=== PATIENT | female | born 1990 | race American Indian/Alaskan Native ===

== ENCOUNTER 2018-07-06 18:24 | Inpatient (IN) | payer OTHER ==
[2018-07-06] MEDS ORDERED: AMPICILLIN/NS 2 GM/100 ML 2 GM/100 ML BAG IV NR (19:41)
[2018-07-06] MEDS ORDERED: LACTATED RINGERS 1,000 ML ONE (20:14)
[2018-07-06] MEDS ORDERED: SUBLIMAZE IV PRN (21:43)
[2018-07-06] MEDS ORDERED: STADOL IV PRN (21:43)
[2018-07-06] MEDS ORDERED: BRETHINE SUB-Q PRN (21:43)
[2018-07-06] MEDS ORDERED: XYLOCAINE 2% INFILTRATI ONE (21:43)
[2018-07-06] MEDS ORDERED: ZOFRAN IV PRN (21:43)
[2018-07-06] MEDS ORDERED: NARCAN 0.4 MG/1 ML IV PRN (21:43)
[2018-07-06] MEDS ORDERED: BRETHINE IVP PRN (21:43)
[2018-07-06] MEDS ORDERED: MINERAL OIL PO PRN (21:43)
[2018-07-06] MEDS ORDERED: AMPICILLIN/NS 2 GM/100 ML 2 GM/100 ML BAG IV ONE (21:43)
[2018-07-06 21:48] LABS: Basophils # (Auto) 0.1 K/mm3 (0.0-0.1); Basophils % (Auto) 0.6 % (0.0-1.8); Eosinophils % (Auto) 0.4 % (0.0-4.3); Hematocrit 37.6 % (30.3-42.9); Hemoglobin 12.6 gm/dl (10.1-14.3); Lymphocytes # (Auto) 2.8 K/mm3 (1.2-5.4); Lymphocytes % (Auto) 29.3 % (13.4-35.0); Mean Corpuscular HGB Conc 34 % (30-34); Mean Corpuscular Volume 93 fl (79-97); Monocytes # (Auto) 0.6 K/mm3 (0.0-0.8); Platelet Count 213 K/mm3 (140-440); Red Blood Count 4.04 M/mm3 (3.65-5.03); Red Cell Distribution Width 14.3 % (13.2-15.2)
[2018-07-06] MEDS ORDERED: PITOCin/NS 30 UNIT/500ML 30 UNITS/500 ML BAG IV SCH (22:00)
[2018-07-06] MEDS ORDERED: CELESTONE SOLUSPAN IM SCH (22:00)
[2018-07-06] MEDS: LACTATED RINGERS 1,000 ML IV SCH (22:04)
[2018-07-06 22:15] LABS: Hepatitis C Virus Antibody Non-Reactive (NonReactive)
--- NOTE | 2018-07-06 22:24 | History and Physical Report ---
History of Present Illness Date of examination: 07/06/18 Date of admission: 07/06/18 19:45 Chief complaint: water broke History of present illness: Pt is a 28 year old -[place]ong[place] NANCY 08/05/18 at 35w5d presents with rupture of membranes at 1630pm. She reports rare contractions but denies vaginal bleeding. She has care at [facility] uncomplicated per pt but her records are currently unavailable for review. She is GBS unknown. Past History Past Medical History: no pertinent history Past Surgical History: no surgical history Family/Genetic History: heart disease Social history: no significant social history - Obstetrical History Expected Date of Delivery: 08/05/18 Actual Gestation: 35 Week(s) 5 Day(s) : 2 Para: 1 Hx # Term Pregnancies: 1 Number of Pregnancies: 0 Spontaneous Abortions: 0 Induced : 0 Number of Living Children: 1 Medications and Allergies Allergies Allergy/AdvReac Type Severity Reaction Status Date / Time No Known Allergies Allergy Verified 07/29/15 07:07 Home Medications Medication Instructions Recorded Confirmed Last Taken Type RX: No Known Home Medications [No 07/29/15 07/29/15 Unknown History Reported Home Medications] Active Meds: Active Medications Betamethasone Acet/Betameth SodPhos (Celestone Soluspan) 12 mg IM Q24H EMMA Stop: 07/07/18 22:01 Last Admin: 07/06/18 21:56 Dose: 12 mg Documented by: Butorphanol Tartrate (Stadol) 2 mg IV Q2H PRN PRN Reason: Pain , Severe (7-10) Ephedrine Sulfate (Ephedrine Sulfate) 10 mg IV Q2M PRN PRN Reason: Hypotension Fentanyl (Sublimaze) 100 mcg IV Q2H PRN PRN Reason: Labor Pain Oxytocin/Sodium Chloride (Pitocin/Ns 20 Unit/1000ml Drip) 20 units in 1,000 mls @ 125 mls/hr IV DIRECT EMMA Oxytocin/Sodium Chloride (Pitocin/Ns 30 Unit/500ml) 30 units in 500 mls @ 2 mls/hr IV TITR EMMA; Protocol Lactated Ringer's (Lactated Ringers) 1,000 mls @ 125 mls/hr IV DIRECT EMMA Last Admin: 07/06/18 22:04 Dose: 125 mls/hr Documented by: Ampicillin Sodium (Ampicillin/Ns 1 Gm/50 Ml) 1 gm in 50 mls @ 100 mls/hr IV Q4HR [facility]; Protocol Ampicillin Sodium (Polycillin/Ns 2 Gm/100 Ml) 2 gm in 100 mls @ 100 mls/hr IV ONCE ONE; Protocol Stop: 07/06/18 22:42 Last Admin: 07/06/18 20:45 Dose: 100 mls/hr Documented by: Mineral Oil (Mineral Oil) 30 ml PO QHS PRN PRN Reason: Constipation Naloxone HCl (Narcan 0.4 Mg/1 Ml) 0.1 mg IV Q2MIN PRN PRN Reason: Res Rate </= 8 or 02 SAT < 92% Ondansetron HCl (Zofran) 4 mg IV Q8H PRN PRN Reason: Nausea And Vomiting Terbutaline Sulfate (Brethine) 0.25 mg SUB-Q ONCE PRN PRN Reason: Hyperstimulation/Hypertonicity Terbutaline Sulfate (Brethine) 0.25 mg IVP ONCE PRN PRN Reason: Hyperstimulation/Hypertonicity Review of Systems All systems: negative - Vital Signs Vital signs: Vital Signs Pulse BP 86 110/73 07/06/18 19:07 07/06/18 19:07 Temp Pulse Resp BP Pulse Ox 81 114/79 07/06/18 22:06 07/06/18 22:06 - Physical Exam Breasts: Positive: deferred Cardiovascular: Regular rate Lungs: Positive: Clear to auscultation Abdomen: Positive: soft (gravid ) Uterus: Positive: enlarged (gravid ) Extremities: Positive: normal - Obstetrical FHR: auscultation normal Cervical Dilatation: 3 (per RN ) Results Result Diagrams: 07/06/18 21:36 All other labs normal. Assessment and Plan A: IUP at 35w5d; confirmed cephalic presentation PPROM GBS unknown P: Admit to labor and delivery Request records Admission labs GBS prophylaxis Betamethasone Proceed with delivery
--- NOTE | 2018-07-06 23:19 | Ultrasound Report ---
PROCEDURE: US OB FOLLOW UP TECHNIQUE: Real-time limited sonographic examination was performed for evaluation of each fetus with image documentation (1 or more fetuses). HISTORY: For presentation and EFW COMPARISONS: None . FINDINGS: FETUS IUP: Single living intrauterine . Position: Cephalic . Placental position: Anterior and grade 1, without previa . Amniotic fluid volume: Amniotic fluid index measures 4.1 cm Heart rate and rhythm: 145 BPM, Regular . anatomic survey: Not performed . MEASUREMENTS BPD: 8.5 cm, 34 weeks 3 days . HC: 30.4 cm, 33 weeks 6 days . AC: 29.7 cm, 33 weeks 5 days . FL: 6.7 cm, 34 weeks 3 days . Mean Gestational Age (composite criteria): 34 weeks 1 day . Ratio biometry: Normal . Estimated Weight: 2315 grams . Estimated Due Date: 08/16/2018 . IMPRESSION: 1. Single living intrauterine gestation at approximately 34 weeks 1 day . 2. EDC by US 08/16/2018 . 3. Oligohydramnios. Correlate for possible rupture of membranes This document is electronically signed by Anca Segura MD., Jul 06 2018 11:17:14 PM ET
[2018-07-07] MEDS: AMPICILLIN/NS 1 GM/50 ML 1 GM/50 ML BAG IV SCH ×2 (01:30→05:21)
[2018-07-07] MEDS: LACTATED RINGERS 1,000 ML IV SCH (05:22)
[2018-07-07] MEDS ORDERED: SUBLIMAZE IV ONE (06:29)
--- NOTE | 2018-07-07 08:00 | Progress Note ---
Assessment and Plan A/P IUP 35 weeks PPROM clear NICCU notified active labor s/p bmz x1 expect vaginal delivery Subjective - Subjective Date of service: 07/07/18 Principal diagnosis: pprom at 35 weeks Patient reports: loss of fluid, movement normal, contractions, no new complaints, no vaginal bleeding Objective - Vital Signs Vital Signs: Vital Signs - 12hr 07/06/18 07/06/18 07/06/18 20:29 21:50 22:06 Temperature Pulse Rate 75 86 81 Respiratory Rate Blood Pressure 110/64 122/78 114/79 07/06/18 07/07/18 07/07/18 22:43 01:34 02:04 Temperature 97.6 F Pulse Rate 78 72 Respiratory 20 Rate Blood Pressure 95/52 119/77 07/07/18 07/07/18 07/07/18 02:34 03:04 03:34 Temperature Pulse Rate 74 74 67 Respiratory Rate Blood Pressure 96/65 115/70 111/74 07/07/18 07/07/18 07/07/18 04:05 04:35 05:04 Temperature Pulse Rate 71 64 76 Respiratory Rate Blood Pressure 109/72 108/71 94/64 07/07/18 07/07/18 07/07/18 05:34 06:04 06:34 Temperature Pulse Rate 78 80 81 Respiratory Rate Blood Pressure 101/72 109/75 119/78 07/07/18 07/07/18 07:04 07:31 Temperature Pulse Rate 75 74 Respiratory Rate Blood Pressure 93/62 103/67 - Exam Breasts: normal Cardiovascular: Regular rate, Normal S1 Lungs: Clear to auscultation, Normal air movement Abdomen: Present: normal appearance, soft, normal bowel sounds. Absent: distention, tenderness, guarding Uterus: Present: normal, firm FHR: category 1 Cervical Dilatation: 7 Cervical Effacement Percentage: 90 station: -2 Uterine Contraction Pattern: Regular Uterine Tone Measurement Phase: Contraction Uterine Contraction Intensity: Moderate Extremities: normal Deep Tendon Reflex Grade: Normal +2 - Labs Labs: Laboratory Results - last 24 hr 07/06/18 07/06/18 07/06/18 21:36 21:36 21:36 WBC 9.7 RBC 4.04 Hgb 12.6 Hct 37.6 MCV 93 MCH 31 MCHC 34 RDW 14.3 Plt Count 213 Lymph % (Auto) 29.3 [place] % (Auto) 6.0 Eos % (Auto) 0.4 Baso % (Auto) 0.6 Lymph # 2.8 [place] # 0.6 Eos # 0.0 Baso # 0.1 Seg Neutrophils % 63.7 Seg Neutrophils # 6.2 Hep Bs Antigen Non-reactive Hepatitis C Antibody Non-reactive HIV 1&2 Antibody Rapid HIV P24 Antigen Rubella IgG Antibody Immune Blood Type Antibody Screen 07/06/18 07/06/18 21:36 21:36 WBC RBC Hgb Hct MCV MCH MCHC RDW Plt Count Lymph % (Auto) [place] % (Auto) Eos % (Auto) Baso % (Auto) Lymph # [place] # Eos # Baso # Seg Neutrophils % Seg Neutrophils # Hep Bs Antigen Hepatitis C Antibody HIV 1&2 Antibody Rapid Non react HIV P24 Antigen Non react Rubella IgG Antibody Blood Type O POSITIVE Antibody Screen Negative
[2018-07-07] MEDS: PITOCin/NS 20 UNIT/1000ML DRIP 20 UNITS/1,000 ML BAG IV SCH ×2 (09:36→12:31)
--- NOTE | 2018-07-07 09:48 | Procedure Note ---
OB Delivery Note - Vaginal Delivery position: OA Intrapartum events: none, PROM->1hr before delivery Delivery induction: none Delivery augmentation: pitocin Delivery monitor: external FHT, external uterine Route of delivery: Delivery placenta: spontaneous Delivery cord: 3 umbilical vessels Episiotomy: none Delivery laceration: 1st degree Anesthesia: none Delivery comments: of viable male infant at 35 weeks EGA. Delivery was unattended by provider due to short second stage. EBL 350 mL, Pitocin infused . Stream of bleeding after the placenta was resolved with manual removal of clots in the lower uterine segment. Apgars 8/9, infant was transferred to NICU for observation due to resuscitation. Small 1st degree laceration not repaired. Mother recovering well.
[2018-07-07] MEDS ORDERED: ZOFRAN IV PRN (09:49)
[2018-07-07] MEDS ORDERED: TUCKS PAD TP PRN (09:49)
[2018-07-07] MEDS ORDERED: DULCOLAX PR PRN (09:49)
[2018-07-07] MEDS ORDERED: LANSINOH TP PRN (09:49)
[2018-07-07] MEDS ORDERED: MILK OF MAGNESIA PO PRN (09:49)
[2018-07-07] MEDS ORDERED: TYLENOL PO PRN (09:49)
[2018-07-07] MEDS ORDERED: PHENERGAN PO PRN (09:49)
[2018-07-07] MEDS ORDERED: BENADRYL PO PRN (09:49)
[2018-07-07] MEDS ORDERED: SODIUM CHLORIDE FLUSH SYRINGE 10 ML IV NR (10:00)
[2018-07-07] MEDS: IBUPROFEN PO SCH ×2 (12:40→23:51)
[2018-07-07 20:42] LABS: Hematocrit 36.5 % (30.3-42.9); Hemoglobin 12.3 gm/dl (10.1-14.3)
[2018-07-07 22:10] LABS: Amphetamine Screen,Urine PRESUMPTIVE NEGATIVE; Benzodiazepines Screen,Urine PRESUMPTIVE NEGATIVE; Cannabinoid Screen,Urine PRESUMPTIVE NEGATIVE; Cocaine Screen,Urine PRESUMPTIVE NEGATIVE; Methadone Screen,Urine PRESUMPTIVE NEGATIVE; Opiate Screen,Urine PRESUMPTIVE NEGATIVE
[2018-07-08] MEDS: IBUPROFEN PO SCH ×4 (05:12→23:24)
[2018-07-08] MEDS ORDERED: BOOSTRIX IM ONE (06:00)
--- NOTE | 2018-07-08 10:52 | Progress Note ---
Assessment and Plan A/P PPD1 delivery routine care d/c home tomorrow Subjective - Subjective Date of service: 07/08/18 Principal diagnosis: pprom at 35 weeks Patient reports: appetite normal, voiding normally, pain well controlled, flatus, ambulating normally [place]: doing well Objective - Vital Signs Latest vital signs: Vital Signs Temp Pulse Resp BP BP Pulse Ox 07/08/18 08:05 98.4 F 64 16 114/66 98 07/08/18 00:40 98.3 F 68 20 109/68 99 07/07/18 20:20 98.4 F 79 18 112/80 99 07/07/18 16:31 98.9 F 63 18 119/79 99 07/07/18 12:40 20 07/07/18 11:24 97.4 F L 72 18 116/76 99 Intake and Output 07/07/18 07/08/18 07/08/18 23:59 07:59 15:59 Intake Total 840 240 Output Total 900 Balance -60 240 Intake: Intake, Free Water 840 240 Output: Urine 900 Indwelling Catheter 400 Void 500 Other: Total, Output Amount 400 # Voids Indwelling Catheter 2 - Exam Breasts: Present: normal Cardiovascular: Present: Regular rate, Normal S1 Lungs: Present: Clear to auscultation, Normal air movement Abdomen: Present: normal appearance, soft, normal bowel sounds. Absent: distention, tenderness, guarding Uterus: Present: normal, firm, fundal height below umbilicus. Absent: bogginess, tenderness Extremities: Present: normal Deep Tendon Reflex Grade: Normal +2
--- NOTE | 2018-07-08 10:52 | Discharge Summary ---
Providers - Providers Date of Admission: 07/06/18 19:45 Date of discharge: 07/09/18 Attending physician: MERY GEE Primary care physician: MERY GEE Hospitalization Reason for admission: active labor, labor Delivery: Episiotomy: none Laceration: none Incision: normal Other procedures: none Discharge diagnosis: delivery [place] baby: male Condition at discharge: Good Disposition: DC-01 TO HOME OR SELFCARE Plan - Provider Discharge Summary Activity: routine, no sex for 6 weeks, no strenuous exercise Diet: routine Instructions: routine Additional instructions: [] Smoking cessation referral if applicable(refer to patient education folder for contact #) [] Refer to [facility] Booklet Call your doctor immediately for: * Fever > 100.5 * Heavy vaginal bleeding ( >1 pad per hour) * Severe persistent headache * Shortness of breath * Reddened, hot, painful area to leg or breast * Drainage or odor from incision. * Keep incision clean and dry at all times and follow doctor's instructions regarding bathing/showering - Follow up plan Follow up: MERY GEE MD [Primary Care Provider] - 6 Weeks
[2018-07-09] MEDS: IBUPROFEN PO SCH (05:19)
[2018-07-09 12:19] VITALS: BP 125/87
== END 2018-07-09 13:05 | disposition home or self-care (01) | DRG 775 ==
LOC: TRG 18:24 → LD 19:45 → OB 07-07 12:04
PROVIDERS: ADMIT Obstetrics & Gynecology; ATTEND Obstetrics & Gynecology
PROC: 10E0XZZ Delivery of Products of Conception, External Approach (ICD-10-PCS; principal; 2018-07-07)
DX: O60.14X0 Preterm labor third trimester with preterm delivery third trimester, not applicable or unspecified (principal); O42.913 Preterm premature rupture of membranes, unspecified as to length of time between rupture and onset of labor, third trimester; O70.0 First degree perineal laceration during delivery; Z37.0 Single live birth; Z3A.35 35 weeks gestation of pregnancy
CPT/HCPCS: 36415; 76816; 80307; 85014; 85018; 85025; 86592; 86706; 86762; 86803; 86850; 86900; 86901; 87806; 90715; G0378; J0290; J0702; J2590; J3010; J7120

== ENCOUNTER 2019-11-21 07:00 | Day surgery (SDC) | payer MEDICAID ==
[~2019-11-21 07:00] MED LIST: BUPIVACAINE/PF (0.5%) 5 MG/1 ML 30 ML VIAL INFILTRATI ONE
--- NOTE | 2019-11-21 07:34 | Short Stay Summary ---
Short Stay Documentation Date of service: 11/21/19 Narrative H&P: 29-year-old -1-0-2 with undesired fertility. The patient has elected to undergo permanent sterilization. She is aware of other contraceptive options. - History Principal diagnosis: Unwanted fertility Past Medical History: No medical history Past Surgical History: No surgical history Social history: single - Allergies and Medications Current Medications: Allergies No Known Allergies Allergy (Verified 11/14/19 11:53) Home Medications Medication Instructions Recorded Confirmed Last Taken Type No Known Home Medications [No 11/14/19 11/14/19 Unknown History Reported Home Medications] - Physical exam General appearance: no acute distress Integumentary: no rash HEENT: Atraumatic Lungs: Clear to auscultation Breasts: deferred Heart: Regular rate Gastrointestinal: normal Female Genitourinary: deferred Rectal Exam: deferred Extremities: no ischemia Neurological: Normal gait - Brief post op/procedure progress note Date of procedure: 11/21/19 Pre-op diagnosis: Unwanted fertility Post-op diagnosis: same Procedure: Laparoscopy and bilateral tubal ligation with Filshie clips Anesthesia: MATYA Surgeon: CAMPBELL ARMSTRONG Estimated blood loss: minimal Pathology: none Condition: stable - Hospital course Hospital course: The patient was admitted the day of surgery and underwent a laparoscopic bilateral tubal ligation. Please see operative note for details of surgery. - Disposition Condition at discharge: Good Disposition: DC-01 TO HOME OR SELFCARE - Discharge Diagnoses (1) Unwanted fertility Status: Acute Short Stay Discharge Plan Activity: other (Pelvic rest for 1 week) Diet: regular Additional Instructions: Follow-up is not required Follow-up as needed Prescriptions: Ibuprofen [Motrin] 800 mg PO Q8HR PRN #30 tablet PRN Reason: Pain , Severe (7-10) HYDROcodone/APAP 5-325 [[place] 5/325] 1 each PO Q6HR PRN #15 tablet PRN Reason: Pain
[2019-11-21] MEDS ORDERED: LACTATED RINGERS 1,000 ML ONE (07:56)
[2019-11-21] MEDS ORDERED: MIDAZOLAM 2 MG/2 ML INJ IV NR (08:00)
[2019-11-21] MEDS ORDERED: LACTATED RINGERS 1,000 ML IV SCH (08:00)
[2019-11-21] MEDS ORDERED: ONDANSETRON 4 MG/2 ML INJ IV PRN (08:00)
[2019-11-21] MEDS ORDERED: HYDROmorphone 1 MG/1 ML INJ IV PRN ×2 (08:00)
--- NOTE | 2019-11-21 08:01 | Anesthesia Consultation ---
Anesthesia Consult and Med Hx Date of service: 11/21/19 - Airway Anesthetic Teeth Evaluation: Good ROM Head & Neck: Adequate Mental/Hyoid Distance: Adequate Mallampati Class: Class II Intubation Access Assessment: Good - Pre-Operative Health Status ASA Pre-Surgery Classification: ASA1 Proposed Anesthetic Plan: General - Pulmonary Hx Asthma: No COPD: No Hx Pneumonia: No - Cardiovascular System Hx Hypertension: No - Central Nervous System Hx Seizures: No Hx Psychiatric Problems: No - Endocrine Hx Renal Disease: No Hx End Stage Renal Disease: No Hx Hypothyroidism: No Hx Hyperthyroidism: No - Hematic Hx Anemia: No Hx Sickle Cell Disease: No - Other Systems Hx Alcohol Use: No Hx Cancer: No
--- NOTE | 2019-11-21 08:01 | Anesthesia Day of Surgery ---
Anesthesia Day of Surgery - Day of Surgery Patient Examined: Yes Patient H&P Reviewed: Yes Patient is NPO: Yes
[2019-11-21] MEDS ORDERED: propofoL 200 MG/20 ML VIAL IV ONE (08:32)
[2019-11-21] MEDS ORDERED: ROCURONIUM 50 MG/5 ML INJ IV ONE (08:32)
[2019-11-21] MEDS ORDERED: HYDROmorphone 1 MG/1 ML INJ ONE (08:32)
[2019-11-21] MEDS ORDERED: LIDOCAINE MPF (2%) 20 MG/1 ML VIAL 5 ML ONE (08:32)
[2019-11-21] MEDS ORDERED: KETOROLAC 30 MG/1 ML INJ ONE (09:15)
[2019-11-21] MEDS ORDERED: NEOSTIGMINE 10MG/10 ML INJ MDV ONE ×2 (09:15)
[2019-11-21] MEDS ORDERED: GLYCOPYRROLATE 0.4 MG/2 ML INJ ONE (09:15)
[2019-11-21] MEDS ORDERED: BUPIVACAINE/PF (0.5%) 5 MG/1 ML 30 ML VIAL INFILTRATI ONE (09:15)
[2019-11-21] MEDS ORDERED: ONDANSETRON 4 MG/2 ML INJ ONE (09:16)
--- NOTE | 2019-11-21 09:20 | Operative Report ---
Operative Report Operative Report: Date of surgery: November 21, 2019 Preoperative diagnosis: Unwanted fertility Postoperative diagnosis: Same as above Procedure: Laparoscopic bilateral tubal ligation with Filshie clips Surgeon: Lea Frias M.D. Anesthesia: General endotracheal anesthesia Estimated blood loss: Minimal Findings: Normal uterus tubes and ovaries Indication: 29-year-old -1-0-2 with undesired fertility. Procedure: The patient was taken to the operating room and given general endotracheal anesthesia without complication. The patient is prepped and draped in a normal sterile fashion. A bivalve speculum was placed in the patient's vagina and a single-tooth tenaculum was placed on the anterior lip of the cervix .A uterine acorn manipulator was placed, and the bivalve speculum was then removed. Attention was then turned to the patient's abdomen where a 5 mm infraumbilical skin incision was then made. A Veress needle was placed and peritoneal entry was verified water-filled syringe. Insufflation of the peritoneal cavity was performed with CO2 gas. A 5 mm trocar was placed and the laparoscope was then inserted. The patient was then placed in Trendelenburg. A 7 mm suprapubic skin incision was then made. Under direct visualization a 7 mm trocar was then placed. An additional 5 mm left lateral trocar was also placed. General survey of the patient's abdomen revealed normal uterus tubes and ovaries. The fallopian tube was then followed out to the fimbriated end. A Filshie clip was applied to the ampullary portion of the tube this was performed on the contralateral side as well. The trocars were then removed. The pneumoperitoneum was then released. The 5 mm trocar laparoscope was then removed. The skin incisions were then closed with 4-0 Monocryl. The incisions were injected with quarter percent Marcaine. Dressings were applied to the incision. The vaginal instruments were then removed atraumatically. Then successfully extubated and taken to the recovery room. All sponge laps and needle counts were correct x2.
[2019-11-21 10:02] VITALS: BP 146/98
[2019-11-21] MEDS ORDERED: HYDROcodone/ACETAMINOPHEN 5-325 MG TAB PO PRN (10:02)
--- NOTE | 2019-11-21 11:01 | Post Anesthesia Evaluation ---
- Post Anesthesia Evaluation Patient Participated: Yes Airway Patent: Yes Stable Respiratory Function: Yes Nausea/Vomiting: No Temp > 96.8F: Yes Pain Manageable: Yes Adequeate Hydration: Yes Anesthesia Complications: No Block Receding Appropriately: Not Applicable Patient on Ventilator: No
== END 2019-11-21 11:45 | disposition home or self-care (01) ==
LOC: OR 07:00
PROVIDERS: ATTEND Obstetrics & Gynecology
DX: Z30.2 Encounter for sterilization (principal); Z79.899 Other long term (current) drug therapy; Z83.3 Family history of diabetes mellitus; Z82.49 Family history of ischemic heart disease and other diseases of the circulatory system
CPT/HCPCS: 58671; 81025; J1170; J1885; J2250; J2405; J2704; J2710; J7120